=== PATIENT | male | born 1995 | race Caucasian/White ===

== ENCOUNTER 2017-01-04 13:45 | Emergency (ER) | payer SELFPAY ==
[~2017-01-04] VITALS: Ht 175.3 cm; Wt 77.1 kg
[2017-01-04] MEDS ORDERED: KETOROLAC 60MG/2ML VIAL IM ONE (15:15)
[2017-01-04 15:58] VITALS: BP 126/74
== END 2017-01-04 16:56 | disposition home or self-care (01) ==
LOC: ER 14:15
DX: M94.0 Chondrocostal junction syndrome [Tietze] (principal); F32.9 Major depressive disorder, single episode, unspecified; F17.200 Nicotine dependence, unspecified, uncomplicated
CPT/HCPCS: 93005; 99283; J1885

== ENCOUNTER 2017-01-29 15:36 | Emergency (ER) | payer SELFPAY ==
[~2017-01-29] VITALS: Ht 177.8 cm; Wt 80.0 kg
[2017-01-29 15:39] VITALS: BP 115/63
== END 2017-01-29 18:30 | disposition left against medical advice (07) ==
LOC: ER 15:54
DX: R10.9 Unspecified abdominal pain (principal); R11.2 Nausea with vomiting, unspecified; Z53.21 Procedure and treatment not carried out due to patient leaving prior to being seen by health care provider

== ENCOUNTER 2018-07-04 01:14 | Emergency (ER) | payer SELFPAY ==
[~2018-07-04] VITALS: Ht 182.9 cm; Wt 98.0 kg
[2018-07-04] MEDS ORDERED: SODIUM CHLORIDE 0.9% 1,000 ML IV ONE (01:31)
[2018-07-04 02:39] LABS: CHLORIDE 104 mEq/L (98-107)
[2018-07-04 02:42] LABS: ETHANOL BLOOD < 10 mg/dL
[2018-07-04 02:47] LABS: CREATINE KINASE 140 IU/L (39-308)
[2018-07-04 02:50] LABS: CREATINE KINASE MB FRACTION 1.7 ng/mL (0.5-3.6)
[2018-07-04 02:54] LABS: BASOPHILS % 0.6 % (0.0-2.0); EOSINOPHILS % 1.8 % (0.0-5.0); HEMATOCRIT. 45.4 % (42.0-52.0); HEMOGLOBIN. 15.4 g/dL (14.0-18.0); LYMPHOCYTES % 33.6 % (20.0-50.0); MEAN CORPUSCULAR HEMOGLOBIN 29.1 pg (28.0-32.0); MEAN CORPUSCULAR VOLUME 85.7 fL (80.0-94.0); MEAN PLATELET VOLUME 9.8 fl (7.4-10.4); MONOCYTES % 7.8 % (2.0-8.0); NEUTROPHILS % 56.2 % (40.0-76.0); PLATELET 197 x1000/uL (130-400); RED CELL DISTRIBUTION WIDTH 13.5 % (11.6-14.6)
[2018-07-04 03:07] LABS: *AMPHETAMINES SCREEN URINE NEGATIVE (NEGATIVE); *BARBITURATES SCREEN URINE NEGATIVE (NEGATIVE); *BENZODIAZEPINES SCREEN URINE NEGATIVE (NEGATIVE); *COCAINE SCREEN URINE NEGATIVE (NEGATIVE)
[2018-07-04 03:09] LABS: CANNABINOID URINE SCREEN NEGATIVE (NEGATIVE); METHADONE URINE SCREEN NEGATIVE (NEGATIVE); OPIATES URINE SCREEN NEGATIVE (NEGATIVE); PHENCYCLIDINE URINE SCREEN NEGATIVE (NEGATIVE)
[2018-07-04 04:50] VITALS: BP 118/73
== END 2018-07-04 04:52 | disposition home or self-care (01) ==
LOC: ER 01:14
DX: T75.4XXA Electrocution, initial encounter (principal); R00.2 Palpitations; F32.9 Major depressive disorder, single episode, unspecified; W86.1XXA Exposure to industrial wiring, appliances and electrical machinery, initial encounter; Y93.E3 Activity, vacuuming; Y92.9 Unspecified place or not applicable
CPT/HCPCS: 36415; 71045; 80053; 80305; 80320; 82550; 82553; 83880; 84484; 85025; 93005; 99284; J7030; Z7610; G0480